=== PATIENT | female | born 1980 | race Caucasian/White ===

== ENCOUNTER 2018-09-25 09:01 | Outpatient (CLI) | payer OTHER ==
[2018-09-25 11:24] LABS: Alanine Aminotransferase 61 units/L (7-56); Albumin 4.9 g/dL (3.9-5); Chol/HDL Ratio 5.54 %; HDL Cholesterol 44 mg/dL (40-59); LDL Cholesterol,Direct 181 mg/dL (50-130)
[2018-09-25 11:29] LABS: Bilirubin,Direct < 0.2 mg/dL (0-0.2)
== END 2018-09-25 09:02 | disposition home or self-care (01) ==
LOC: LAB 09:01
PROVIDERS: ATTEND Internal Medicine
DX: E11.9 Type 2 diabetes mellitus without complications (principal); I10 Essential (primary) hypertension; E55.9 Vitamin D deficiency, unspecified; E07.9 Disorder of thyroid, unspecified; E03.9 Hypothyroidism, unspecified
CPT/HCPCS: 36415; 80061; 80076

== ENCOUNTER 2018-10-17 14:42 | Outpatient (CLI) | payer OTHER ==
--- NOTE | 2018-10-17 15:47 | Mammography Report ---
BILATERAL DIGITAL SCREENING MAMMOGRAM WITH CAD:10/17/18 CLINICAL: 38 year-old for baseline screening. FINDINGS: The breasts are heterogeneously dense, which may obscure small masses.Right asymmetries on both views require additional imaging. No architectural distortion or suspicious calcifications. The left breast is negative. IMPRESSION: Right asymmetries requiring further workup. BI-RADS CATEGORY: 0 -- Needs Additional Imaging RECOMMENDATION: Recall for right ML, rolled CC and spot magnification MLO and CC views and right breast ultrasound if needed. ACR BI-RADS MAMMOGRAPHIC CODES: 0 = Needs additional imaging evaluation; 1 = Negative; 2 = Benign; 3 = Probably benign; 4 = Suspicious; 5 = Malignant; 6 = Known biopsy-proven malignancy COMMENT: 1. Dense breast tissue, i.e., adenosis, fibrocystic changes, etc., may obscure an underlying neoplasm. 2. Approximately 10% of cancers are not detected with mammography. 3. A negative mammography report should not delay biopsy if a clinically suspicious mass is present.
== END 2018-10-17 14:43 | disposition home or self-care (01) ==
LOC: MAMMO 14:42
PROVIDERS: ATTEND Internal Medicine
DX: Z12.31 Encounter for screening mammogram for malignant neoplasm of breast (principal); I10 Essential (primary) hypertension; E03.9 Hypothyroidism, unspecified
CPT/HCPCS: 77067

== ENCOUNTER 2018-10-25 12:55 | Outpatient (CLI) | payer OTHER ==
--- NOTE | 2018-10-25 13:53 | Mammography Report ---
RIGHT DIGITAL DIAGNOSTIC MAMMOGRAM : 10/25/18 12:55:00 CLINICAL: Recalled for asymmetry. COMPARISON:10/17/18 screening FINDINGS: Additional mammographic views were performed and are negative.Satisfactory placement of asymmetries. IMPRESSION: Negative Mammogram. BI-RADS CATEGORY: 1 -- Negative RECOMMENDATION: Routine mammographic screening in one year. ACR BI-RADS MAMMOGRAPHIC CODES: 0 = Needs additional imaging evaluation; 1 = Negative; 2 = Benign; 3 = Probably benign; 4 = Suspicious; 5 = Malignant; 6 = Known biopsy-proven malignancy COMMENT: 1. Dense breast tissue, i.e., adenosis, fibrocystic changes, etc., may obscure an underlying neoplasm. 2. Approximately 10% of cancers are not detected with mammography. 3. A negative mammography report should not delay biopsy if a clinically suspicious mass is present. COMMENT: Patient follow-up letters are generated via our [employer] application.
== END 2018-10-25 12:56 | disposition home or self-care (01) ==
LOC: MAMMO 12:55
PROVIDERS: ATTEND Internal Medicine
DX: R92.8 Other abnormal and inconclusive findings on diagnostic imaging of breast (principal); I10 Essential (primary) hypertension

== ENCOUNTER 2019-02-13 08:19 | Outpatient (CLI) | payer OTHER ==
[2019-02-13 14:44] LABS: Alanine Aminotransferase 62 units/L (7-56); Albumin 4.7 g/dL (3.9-5); Chol/HDL Ratio 3.46 %; HDL Cholesterol 45 mg/dL (40-59); LDL Cholesterol,Direct 97 mg/dL (50-130)
[2019-02-13 14:46] LABS: Bilirubin,Direct < 0.2 mg/dL (0-0.2)
[2019-02-16 19:17] LABS: Vitamin D, 25-OH, D2 5 ng/mL
== END 2019-02-13 08:20 | disposition home or self-care (01) ==
LOC: LAB 08:19
PROVIDERS: ATTEND Internal Medicine
DX: E55.9 Vitamin D deficiency, unspecified (principal); E78.5 Hyperlipidemia, unspecified; E11.9 Type 2 diabetes mellitus without complications; R94.5 Abnormal results of liver function studies; I10 Essential (primary) hypertension; E03.9 Hypothyroidism, unspecified
CPT/HCPCS: 36415; 80061; 80076; 82306; 83036

== ENCOUNTER 2019-06-13 08:40 | Outpatient (CLI) | payer OTHER ==
[2019-06-13 11:38] LABS: Basophils % (Auto) 0.2 % (0.0-1.8); Eosinophils # (Auto) 0.1 K/mm3 (0.0-0.4); Eosinophils % (Auto) 0.8 % (0.0-4.3); Hematocrit 39.6 % (30.3-42.9); Hemoglobin 13.4 gm/dl (10.1-14.3); Lymphocytes # (Auto) 2.3 K/mm3 (1.2-5.4); Lymphocytes % (Auto) 27.4 % (13.4-35.0); Mean Corpuscular HGB Conc 34 % (30-34); Mean Corpuscular Volume 89 fl (79-97); Monocytes # (Auto) 0.7 K/mm3 (0.0-0.8); Monocytes % (Auto) 8.2 % (0.0-7.3); Platelet Count 252 K/mm3 (140-440); Red Blood Count 4.47 M/mm3 (3.65-5.03); Red Cell Distribution Width 13.3 % (13.2-15.2)
[2019-06-13 12:12] LABS: Alanine Aminotransferase 50 units/L (7-56); Albumin 4.7 g/dL (3.9-5); BUN/Creatinine Ratio 18; Blood Urea Nitrogen 11 mg/dL (7-17); Calcium 9.4 mg/dL (8.4-10.2); Chol/HDL Ratio 3.28 %; HDL Cholesterol 35 mg/dL (40-59); Hemolysis Index 9; LDL Cholesterol,Direct 63 mg/dL (50-130)
[2019-06-16 15:00] LABS: Vitamin D, 25-OH, D2 32 ng/mL
== END 2019-06-13 08:41 | disposition home or self-care (01) ==
LOC: LAB 08:40
PROVIDERS: ATTEND Internal Medicine
DX: Z13.29 Encounter for screening for other suspected endocrine disorder (principal); E78.5 Hyperlipidemia, unspecified; E55.9 Vitamin D deficiency, unspecified; E07.9 Disorder of thyroid, unspecified; R73.03 Prediabetes; I10 Essential (primary) hypertension
CPT/HCPCS: 36415; 80053; 80061; 82306; 82607; 83036; 84443; 85025

== ENCOUNTER 2019-07-08 12:16 | Outpatient (CLI) | payer OTHER ==
--- NOTE | 2019-07-08 13:23 | XRay Report ---
CHEST 2 VIEWS INDICATION: J06.9 ACUTE UPPER RESPIRATORY INFECTION UNSPECIFIED. COMPARISON: None. FINDINGS: Support devices: None. Heart: Within normal limits. Pulmonary vasculature: Normal. Lungs/pleura: Subtle patchy opacity in the left lung base on the frontal view and airspace opacities in the lingular area on the lateral view. The lungs are otherwise clear. No pleural effusion. No pneu mothorax. Additional findings: None. IMPRESSION: 1. Lingular pneumonia. Signer Name: Fadi Valles MD Signed: 07/08/2019 1:18 PM Workstation Name: [id number]
== END 2019-07-08 12:17 | disposition home or self-care (01) ==
LOC: XRAY 12:16
PROVIDERS: ATTEND Internal Medicine
DX: J16.8 Pneumonia due to other specified infectious organisms (principal)
CPT/HCPCS: 71046

== ENCOUNTER 2019-08-27 08:47 | Outpatient (CLI) | payer OTHER ==
[2019-08-27 09:12] LABS: Basophils % (Auto) 0.2 % (0.0-1.8); Eosinophils % (Auto) 0.1 % (0.0-4.3); Hematocrit 39.1 % (30.3-42.9); Hemoglobin 13.4 gm/dl (10.1-14.3); Lymphocytes # (Auto) 1.5 K/mm3 (1.2-5.4); Lymphocytes % (Auto) 15.2 % (13.4-35.0); Mean Corpuscular HGB Conc 34 % (30-34); Mean Corpuscular Volume 87 fl (79-97); Monocytes # (Auto) 0.6 K/mm3 (0.0-0.8); Monocytes % (Auto) 5.9 % (0.0-7.3); Platelet Count 266 K/mm3 (140-440); Red Cell Distribution Width 12.9 % (13.2-15.2)
[2019-08-27 09:31] LABS: ABG Base Excess 0.7 mmol/L (-2.0-3.0); ABG HCO3 24.5 mmol/L (20.0-26.0); ABG Methemoglobin 0.5 % (0.0-1.5); ABG Oxygen Saturation 96.5 % (95.0-99.0); ABG PCO2 36.4 mm Hg; ABG PH 7.446 pH Units (7.350-7.450); ABG PO2 79.3 mm Hg (80.0-90.0)
[2019-08-27 09:36] LABS: Alanine Aminotransferase 17 units/L (7-56); Albumin 4.7 g/dL (3.9-5); BUN/Creatinine Ratio 16; Blood Urea Nitrogen 8 mg/dL (7-17); Calcium 9.5 mg/dL (8.4-10.2); Hemolysis Index 2
== END 2019-08-27 08:48 | disposition home or self-care (01) ==
LOC: LAB 08:47
PROVIDERS: ATTEND Internal Medicine
DX: R05 Cough (principal); I10 Essential (primary) hypertension; E78.00 Pure hypercholesterolemia, unspecified; Z68.29 Body mass index [BMI] 29.0-29.9, adult; Z87.01 Personal history of pneumonia (recurrent)
CPT/HCPCS: 36415; 36600; 80053; 82785; 82803; 84436; 84443; 85025

== ENCOUNTER 2020-04-10 10:35 | Outpatient (CLI) | payer OTHER ==
[2020-04-10 12:01] LABS: Alanine Aminotransferase 137 units/L (7-56); Albumin 4.4 g/dL (3.9-5); Chol/HDL Ratio 5.48 %; HDL Cholesterol 45 mg/dL (40-59); LDL Cholesterol,Direct 165 mg/dL (50-130)
[2020-04-10 12:15] LABS: Bilirubin,Direct < 0.2 mg/dL (0-0.2)
== END 2020-04-10 10:36 | disposition home or self-care (01) ==
LOC: LAB 10:35
PROVIDERS: ATTEND Internal Medicine
DX: E11.9 Type 2 diabetes mellitus without complications (principal); E78.5 Hyperlipidemia, unspecified; R94.5 Abnormal results of liver function studies
CPT/HCPCS: 36415; 80061; 80076; 83036

== ENCOUNTER 2020-05-14 07:05 | Outpatient (CLI) | payer OTHER ==
--- NOTE | 2020-05-14 08:59 | Ultrasound Report ---
ULTRASOUND ABDOMEN, COMPLETE INDICATION: ABNORMAL RESULTS OF LIVER FUNCTION STUDIES. COMPARISON: No relevant prior imaging study available. FINDINGS: Pancreas: No significant abnormality. Abdominal Aorta: No significant abnormality. IVC: No significant abnormality. Liver: The liver measures 17.3 cm in length. Liver is diffusely echogenic compared to the right tamra l cortex. Normal hepatopedal blood flow in the main portal vein. Gallbladder: No significant abnormality. Bile ducts: No significant abnormality. Common bile duct measures 2 mm. Kidneys: Right: 9.8 cm in length. No significant abnormality. Left: 11.1 cm in length. No signifi cant abnormality. Spleen: No significant abnormality. Free fluid: None. Additional Findings: None. IMPRESSION: 1. Hepatomegaly with diffusely echogenic appearance of the liver, most commonly seen with steatosis. Signer Name: Marty Schuster MD Signed: 05/14/2020 8:55 AM Workstation Name: [id number]
== END 2020-05-14 07:06 | disposition home or self-care (01) ==
LOC: US 07:05
PROVIDERS: ATTEND Internal Medicine
DX: R16.0 Hepatomegaly, not elsewhere classified (principal); R94.5 Abnormal results of liver function studies
CPT/HCPCS: 76700

== ENCOUNTER 2020-09-11 09:45 | Outpatient (CLI) | payer OTHER ==
[2020-09-11 10:48] LABS: Alanine Aminotransferase 89 units/L (7-56); Albumin 4.6 g/dL (3.9-5); Chol/HDL Ratio 3.58 %; HDL Cholesterol 53 mg/dL (40-59); LDL Cholesterol,Direct 121 mg/dL (50-130)
[2020-09-11 11:15] LABS: Bilirubin,Direct < 0.2 mg/dL (0-0.2)
== END 2020-09-11 09:46 | disposition home or self-care (01) ==
LOC: LAB 09:45
PROVIDERS: ATTEND Internal Medicine
DX: E11.9 Type 2 diabetes mellitus without complications (principal); E78.5 Hyperlipidemia, unspecified; R94.5 Abnormal results of liver function studies
CPT/HCPCS: 36415; 80061; 80076; 83036

== ENCOUNTER 2021-02-19 10:50 | Outpatient (CLI) | payer OTHER ==
[2021-02-19 12:55] LABS: Alanine Aminotransferase 55 units/L (7-56); Albumin 4.5 g/dL (3.9-5); Blood Urea Nitrogen 9 mg/dL (7-17); Chol/HDL Ratio 4.97 %; HDL Cholesterol 48 mg/dL (40-59); Hemolysis Index 5; LDL Cholesterol,Direct 174 mg/dL (50-130)
[2021-02-19 13:05] LABS: BUN/Creatinine Ratio 23
[2021-02-19 13:06] LABS: Basophils % (Auto) 0.3 % (0.0-1.8); Eosinophils # (Auto) 0.1 K/mm3 (0.0-0.4); Eosinophils % (Auto) 1.5 % (0.0-4.3); Lymphocytes # (Auto) 2.5 K/mm3 (1.2-5.4); Lymphocytes % (Auto) 37.5 % (13.4-35.0); Mean Corpuscular HGB Conc 36 % (30-34); Mean Corpuscular Volume 88 fl (79-97); Monocytes # (Auto) 0.4 K/mm3 (0.0-0.8); Monocytes % (Auto) 6.4 % (0.0-7.3); Platelet Count 223 K/mm3 (140-440); Red Blood Count 4.12 M/mm3 (3.65-5.03); Red Cell Distribution Width 13.1 % (13.2-15.2)
[2021-02-19 13:09] LABS: Hematocrit 36.1 % (30.3-42.9); Hemoglobin 13.1 gm/dl (10.1-14.3)
[2021-02-23 12:07] LABS: Vitamin D, 25-OH, D2 6 ng/mL
== END 2021-02-19 10:51 | disposition home or self-care (01) ==
LOC: LAB 10:50
PROVIDERS: ATTEND Internal Medicine
DX: Z00.00 Encounter for general adult medical examination without abnormal findings (principal); E11.9 Type 2 diabetes mellitus without complications; E07.9 Disorder of thyroid, unspecified; E78.5 Hyperlipidemia, unspecified; E55.9 Vitamin D deficiency, unspecified; R94.5 Abnormal results of liver function studies
CPT/HCPCS: 36415; 80053; 80061; 82306; 82607; 83036; 84443; 85025

== ENCOUNTER 2021-07-23 08:41 | Outpatient (CLI) | payer OTHER ==
[2021-07-23 09:54] LABS: Chol/HDL Ratio 3.75 %
== END 2021-07-23 08:42 | disposition home or self-care (01) ==
LOC: LAB 08:41
PROVIDERS: ATTEND Internal Medicine
DX: E11.9 Type 2 diabetes mellitus without complications (principal); E78.5 Hyperlipidemia, unspecified
CPT/HCPCS: 36415; 80061; 83036

== ENCOUNTER 2021-12-03 09:11 | Outpatient (CLI) | payer OTHER ==
[2021-12-03 10:20] LABS: Alanine Aminotransferase 23 units/L (7-56); Albumin 4.7 g/dL (3.9-5); Chol/HDL Ratio 4.83 %; HDL Cholesterol 53 mg/dL (40-59); LDL Cholesterol,Direct 178 mg/dL (50-130)
[2021-12-03 10:21] LABS: Bilirubin,Direct < 0.2 mg/dL (0-0.2)
== END 2021-12-03 09:12 | disposition home or self-care (01) ==
LOC: LAB 09:11
PROVIDERS: ATTEND Internal Medicine
DX: R94.5 Abnormal results of liver function studies (principal); E11.9 Type 2 diabetes mellitus without complications; E78.5 Hyperlipidemia, unspecified
CPT/HCPCS: 36415; 80061; 80076; 83036